=== PATIENT | male | born 1985 | race Caucasian/White ===

== ENCOUNTER 2019-01-14 00:51 | Inpatient (IN) | payer OTHER, MEDICAID ==
[~2019-01-14] VITALS: Ht 167.6 cm; Wt 78.0 kg
[2019-01-14] VITALS (11 sets, daily range): BP systolic 86–123; BP diastolic 35–80
[2019-01-14] MEDS ORDERED: ONDANSETRON HCL 4MG/2ML INJ IV STA (01:27)
[2019-01-14] MEDS ORDERED: SODIUM CHLORIDE 0.9% 1,000 ML IV ONE ×2 (01:27→03:32)
[2019-01-14] MEDS ORDERED: LORAZEPAM 2MG/ML CPJ IV ONE (01:30)
[2019-01-14] MEDS ORDERED: LEVETIRACETAM 500MG PREMIX 100 ML IV ONE (01:30)
[2019-01-14 01:54] LABS: BASOPHILS % 0.3 % (0.0-2.0); EOSINOPHILS % 1.6 % (0.0-5.0); HEMATOCRIT. 44.1 % (42.0-52.0); HEMOGLOBIN. 14.9 g/dL (14.0-18.0); LYMPHOCYTES % 10.2 % (20.0-50.0); MEAN CORPUSCULAR HEMOGLOBIN 28.8 pg (28.0-32.0); MEAN CORPUSCULAR VOLUME 85.5 fL (80.0-94.0); MEAN PLATELET VOLUME 6.9 fl (7.4-10.4); MONOCYTES % 5.3 % (2.0-8.0); NEUTROPHILS % 82.6 % (40.0-76.0); PLATELET 169 x1000/uL (130-400); RED BLOOD CELL COUNT 5.17 mill/uL (4.7-6.1); RED CELL DISTRIBUTION WIDTH 14.5 % (11.6-14.6)
[2019-01-14 02:02] LABS: CHLORIDE 101 mEq/L (98-107)
[2019-01-14 11:44] LABS: BG DEOXYHEMOGLOBIN 3.3 % (0.0-5.0); BG FRACTION INSPIRED OXYGEN 21; BG HCO3 ACT 24.2 mmol/L (22.0-26.0); BG METHEMOGLOBIN 0.4 % (0.0-1.5); BG OXYGEN SATURATION 96.7 % (92.0-98.5); BG OXYHEMOGLOBIN 95.3 % (94.0-97.0); BG PH 7.378 (7.350-7.450); BG PO2 86.5 mmHg (75.0-100.0); BG SAMPLE SITE RIGHT RADIAL; BG TOTAL HEMOGLOBIN 15.8 g/dL (12.0-18.0); BG VENT MODE ROOM AIR
[2019-01-14 12:27] LABS: BASOPHILS % 0.2 % (0.0-2.0); EOSINOPHILS % 1.4 % (0.0-5.0); HEMATOCRIT. 43.5 % (42.0-52.0); HEMOGLOBIN. 14.6 g/dL (14.0-18.0); LYMPHOCYTES % 7.1 % (20.0-50.0); MEAN CORPUSCULAR VOLUME 86.5 fL (80.0-94.0); MEAN PLATELET VOLUME 7.4 fl (7.4-10.4); MONOCYTES % 5.8 % (2.0-8.0); NEUTROPHILS % 85.5 % (40.0-76.0); PLATELET 175 x1000/uL (130-400); RED BLOOD CELL COUNT 5.03 mill/uL (4.7-6.1); RED CELL DISTRIBUTION WIDTH 14.6 % (11.6-14.6)
[2019-01-14 12:37] LABS: CHLORIDE 106 mEq/L (98-107)
[2019-01-14 12:39] LABS: PROTHROMBIN TIME 10.2 sec (9.6-11.0)
[2019-01-14 12:45] LABS: CREATINE KINASE 74 IU/L (39-308)
[2019-01-14 12:50] LABS: CREATINE KINASE MB FRACTION < 1.0 ng/mL (0.5-3.6)
[2019-01-14] MEDS ORDERED: PNEUMOCOCCAL 23-VAL P-SAC VAC 0.5 ML IM ONE (14:00)
[2019-01-14] MEDS ORDERED: INFLUENZA VIRUS VACCINE(AFLURIA) 0.5ML SYR IM ONE (14:00)
[2019-01-14] MEDS: LEVETIRACETAM 500 MG in SODIUM CHLORIDE 0.9% 100 ML IV SCH ×2 (14:27→22:57)
[2019-01-14] MEDS ORDERED: LORAZEPAM 2MG/ML CPJ IV PRN (15:00)
[2019-01-14] MEDS ORDERED: CLONIDINE 0.1MG TABLET PO PRN (15:00)
[2019-01-14] MEDS ORDERED: DIPHENHYDRAMINE 50MG/ML VIAL IV PRN (15:00)
[2019-01-14] MEDS: SODIUM CHLORIDE 0.45% 1,000 ML IV SCH (16:30)
[2019-01-14] MEDS: LEVOFLOXACIN 500MG PREMIX 100 ML IV SCH (17:13)
[2019-01-14 17:45] LABS: HEPATITIS B SURFACE ANTIGEN NEGATIVE
[2019-01-14 18:15] LABS: HEPATITIS A AB IGM NEGATIVE (NEGATIVE)
[2019-01-14] MEDS ORDERED: ENOXAPARIN 40MG/0.4ML SYR SUBCUT SCH (21:00)
[2019-01-14] MEDS: METRONIDAZOLE 500MG TABLET PO SCH (21:29)
[2019-01-14] MEDS: FAMOTIDINE 20MG TABLET PO SCH (21:29)
[2019-01-15] VITALS (13 sets, daily range): BP systolic 74–115; BP diastolic 44–72
[2019-01-15] MEDS: METRONIDAZOLE 500MG TABLET PO SCH ×3 (06:00→22:35)
[2019-01-15 06:44] LABS: CHLORIDE 101 mEq/L (98-107)
[2019-01-15 07:03] LABS: BASOPHILS % 0.3 % (0.0-2.0); EOSINOPHILS % 2.5 % (0.0-5.0); HEMOGLOBIN. 15.3 g/dL (14.0-18.0); LYMPHOCYTES % 12.3 % (20.0-50.0); MEAN CORPUSCULAR HEMOGLOBIN 28.6 pg (28.0-32.0); MEAN CORPUSCULAR VOLUME 85.8 fL (80.0-94.0); MEAN PLATELET VOLUME 7.5 fl (7.4-10.4); MONOCYTES % 9.6 % (2.0-8.0); NEUTROPHILS % 75.3 % (40.0-76.0); PLATELET 200 x1000/uL (130-400); RED BLOOD CELL COUNT 5.36 mill/uL (4.7-6.1); RED CELL DISTRIBUTION WIDTH 14.7 % (11.6-14.6)
[2019-01-15 07:40] LABS: CLARITY URINE CLEAR (CLEAR); COLOR URINE DARK YELLOW (YELLOW); KETONES URINE NEGATIVE (NEGATIVE); LEUKOCYTE ESTERASE URINE NEGATIVE (NEGATIVE); NITRITE URINE NEGATIVE (NEGATIVE); OCCULT BLOOD URINE NEGATIVE (NEGATIVE); PH URINE 5.5 (4.5-8.0); PROTEIN URINE 2+ (NEGATIVE); SPECIFIC GRAVITY URINE 1.031 (1.005-1.030); UROBILINOGEN URINE 0.2 E.U./dL (0.2-1.0)
[2019-01-15] MEDS: ONDANSETRON HCL 4MG/2ML INJ IV PRN ×2 (07:46→18:21)
[2019-01-15] MEDS: LEVETIRACETAM 500 MG in SODIUM CHLORIDE 0.9% 100 ML IV SCH ×2 (08:59→21:12)
[2019-01-15] MEDS: SODIUM CHLORIDE 0.45% 1,000 ML IV SCH ×3 (09:03→17:03)
[2019-01-15] MEDS: LEVOFLOXACIN 500MG PREMIX 100 ML IV SCH (14:52)
[2019-01-15] MEDS ORDERED: MIDODRINE HCL 5MG TABLET PO PRN (15:15)
[2019-01-15] MEDS ORDERED: MORPHINE SULFATE 2 MG/ML CPJ (NOT FOR IM USE) IV PRN (15:15)
[2019-01-15] MEDS ORDERED: IPRATROPIUM/ALBUTEROL 0.5-3(2.5)MG/3ML NEB HHN PRN (15:15)
[2019-01-15] MEDS: FAMOTIDINE 20MG TABLET PO SCH (21:12)
[2019-01-16] VITALS (9 sets, daily range): BP systolic 85–121; BP diastolic 40–81
[2019-01-16] MEDS: SODIUM CHLORIDE 0.45% 1,000 ML IV SCH ×2 (05:36→07:39)
[2019-01-16] MEDS: METRONIDAZOLE 500MG TABLET PO SCH ×3 (05:36→20:03)
[2019-01-16 06:19] LABS: HEMATOCRIT 49.2 % (42.0-52.0); HEMOGLOBIN 16.6 g/dL (14.0-18.0); MEAN CORPUSCULAR HEMOGLOBIN 28.5 pg (28.0-32.0); MEAN CORPUSCULAR VOLUME 84.6 fL (80.0-94.0); PLATELET 216 x1000/uL (130-400); RED BLOOD CELL COUNT 5.82 mill/uL (4.7-6.1); RED CELL DISTRIBUTION WIDTH 14.5 % (11.6-14.6)
[2019-01-16] MEDS: LEVETIRACETAM 500MG TABLET PO SCH ×2 (10:14→20:03)
[2019-01-16] MEDS ORDERED: SODIUM CHLORIDE 0.9% 500 ML IV NR (11:15)
[2019-01-16] MEDS ORDERED: LEVO500T2 PO (13:43)
[2019-01-16] MEDS ORDERED: FAMO-135 MT (13:43)
[2019-01-16] MEDS ORDERED: KEPP500 MT (13:43)
[2019-01-16] MEDS ORDERED: METR500T MT (13:43)
[2019-01-16] MEDS ORDERED: SODIUM CHLORIDE 0.9% 500 ML IV ONE ×2 (17:00→23:45)
[2019-01-16] MEDS ORDERED: LEVOFLOXACIN 250MG TABLET PO SCH (17:00)
[2019-01-16] MEDS ORDERED: LEVOFLOXACIN 500MG TABLET PO SCH (17:00)
[2019-01-16] MEDS ORDERED: POTASSIUM CHLORIDE 20MEQ TABLET SR PO NR (17:00)
[2019-01-16] MEDS: MIDODRINE HCL 5MG TABLET PO SCH (18:09)
[2019-01-16] MEDS: SODIUM CHLORIDE 0.9% 1,000 ML IV SCH (20:03)
[2019-01-16] MEDS: FAMOTIDINE 20MG TABLET PO SCH (20:03)
[2019-01-16] MEDS ORDERED: SODIUM CHLORIDE 0.9% 1000ML BAG (SEPSIS BOLUS) IV SCH (23:45)
[2019-01-16] MEDS ORDERED: NOREPINEPHRINE 4MG/250ML PMX 250 ML IV ONE (23:45)
[2019-01-17] VITALS (83 sets, daily range): BP systolic 78–138; BP diastolic 30–71
[2019-01-17] MEDS ORDERED: NOREPINEPHRINE 8 MG in DEXT 5% WATER 492 ML IV PRN (01:00)
[2019-01-17 05:28] LABS: BASOPHILS % 0.4 % (0.0-2.0); EOSINOPHILS % 3.4 % (0.0-5.0); HEMATOCRIT. 41.8 % (42.0-52.0); HEMOGLOBIN. 14.2 g/dL (14.0-18.0); LYMPHOCYTES % 26.3 % (20.0-50.0); MEAN CORPUSCULAR HEMOGLOBIN 28.6 pg (28.0-32.0); MEAN CORPUSCULAR VOLUME 84.4 fL (80.0-94.0); MEAN PLATELET VOLUME 7.2 fl (7.4-10.4); MONOCYTES % 12.7 % (2.0-8.0); NEUTROPHILS % 57.2 % (40.0-76.0); PLATELET 196 x1000/uL (130-400); RED BLOOD CELL COUNT 4.96 mill/uL (4.7-6.1); RED CELL DISTRIBUTION WIDTH 14.4 % (11.6-14.6)
[2019-01-17 05:34] LABS: CHLORIDE 108 mEq/L (98-107)
[2019-01-17] MEDS: SODIUM CHLORIDE 0.9% 1,000 ML IV SCH ×3 (07:00→17:00)
[2019-01-17] MEDS: MIDODRINE HCL 5MG TABLET PO SCH ×3 (09:45→17:33)
[2019-01-17] MEDS: METRONIDAZOLE 500MG TABLET PO SCH ×2 (09:45→20:19)
[2019-01-17] MEDS: LEVETIRACETAM 500MG TABLET PO SCH ×2 (09:46→20:19)
[2019-01-17] MEDS: LEVOFLOXACIN 500MG TABLET PO SCH (17:33)
[2019-01-17] MEDS: FAMOTIDINE 20MG TABLET PO SCH (20:19)
[2019-01-18] VITALS (11 sets, daily range): BP systolic 93–106; BP diastolic 52–76
[2019-01-18] MEDS: SODIUM CHLORIDE 0.9% 1,000 ML IV SCH ×2 (02:37→13:43)
[2019-01-18] MEDS: MIDODRINE HCL 5MG TABLET PO SCH ×3 (09:48→18:26)
[2019-01-18] MEDS: LEVETIRACETAM 500MG TABLET PO SCH (09:48)
[2019-01-18] MEDS: METRONIDAZOLE 500MG TABLET PO SCH (09:48)
[2019-01-18] MEDS: LEVOFLOXACIN 500MG TABLET PO SCH (13:42)
[2019-01-18 15:31] LABS: CHLORIDE 106 mEq/L (98-107)
[2019-01-18 15:34] LABS: HEMATOCRIT 37.3 % (42.0-52.0); HEMOGLOBIN 12.5 g/dL (14.0-18.0); MEAN CORPUSCULAR HEMOGLOBIN 28.4 pg (28.0-32.0); MEAN CORPUSCULAR VOLUME 84.4 fL (80.0-94.0); PLATELET 154 x1000/uL (130-400); RED BLOOD CELL COUNT 4.41 mill/uL (4.7-6.1); RED CELL DISTRIBUTION WIDTH 14.5 % (11.6-14.6)
== END 2019-01-18 19:17 | disposition home or self-care (01) | DRG 100 ==
LOC: ER 00:51 → EDBEDREQTM 04:37 → EDBEDREQ 04:37 → EDBEDREQSVC 07:00 → 3WST 07:02 → ENRESERV 07:21 → MICUSO 01-17 00:20 → 3WST 01-17 23:36
PROVIDERS: ADMIT Internal Medicine; ATTEND Internal Medicine
DX: G40.409 Other generalized epilepsy and epileptic syndromes, not intractable, without status epilepticus (principal); G93.41 Metabolic encephalopathy; N17.9 Acute kidney failure, unspecified; E87.1 Hypo-osmolality and hyponatremia; R74.0 Nonspecific elevation of levels of transaminase and lactic acid dehydrogenase [LDH]; E86.0 Dehydration; R73.9 Hyperglycemia, unspecified; E87.6 Hypokalemia; I95.9 Hypotension, unspecified; Z93.2 Ileostomy status; Z85.038 Personal history of other malignant neoplasm of large intestine; Z85.841 Personal history of malignant neoplasm of brain; Z88.0 Allergy status to penicillin; Z79.899 Other long term (current) drug therapy
CPT/HCPCS: 36415; 36600; 71045; 74176; 76700; 80048; 81003; 82140; 82270; 82375; 82378; 82550; 82553; 82805; 83735; 84132; 84484; 85027; 85379; 86705; 86709; 86803; 87015; 87045; 87340; 87427; 87449; 87493; 89055; 90686; 90732; 92610; 93005; 95816; 96361; 96365; 96375; 97162; 99285; J1953; J1956; J2060; J2405; J7030; J7040; J7050

== ENCOUNTER 2020-11-22 04:49 | Inpatient (IN) | payer OTHER, MEDICAID ==
[~2020-11-22] VITALS: Ht 167.6 cm; Wt 65.3 kg
[~2020-11-22 04:49] MED LIST: FAMO-135 MT; KEPP500 MT; LEVO500T2 PO; METR500T MT
[2020-11-22] MEDS ORDERED: SODIUM CHLORIDE 0.9% 1,000 ML IV ONE (05:30)
[2020-11-22 05:39] LABS: HEMATOCRIT. 34.7 % (42.0-52.0); HEMOGLOBIN. 12.1 g/dL (14.0-18.0); MEAN CORPUSCULAR VOLUME 88.8 fL (80.0-94.0); MEAN PLATELET VOLUME 6.9 fl (7.4-10.4); PLATELET 290 x1000/uL (130-400); RED CELL DISTRIBUTION WIDTH 14.2 % (11.6-14.6)
[2020-11-22] MEDS ORDERED: MORPHINE SULFATE 4 MG/ML CPJ (NOT FOR IM USE) IV ONE (05:45)
[2020-11-22 05:51] LABS: CHLORIDE 97 mEq/L (98-107)
[2020-11-22] MEDS ORDERED: MORPHINE SULFATE 2 MG/ML CPJ (NOT FOR IM USE) IV SCH (06:00)
[2020-11-22 07:10] LABS: PLATELET ESTIMATE NORMAL
[2020-11-22] MEDS ORDERED: IOHEXOL-350 100 ML BOTTLE ONE (07:11)
[2020-11-22] MEDS ORDERED: LEVOFLOXACIN 750MG PREMIX 150 ML IV ONE (07:30)
[2020-11-22] MEDS ORDERED: SODIUM CHLORIDE 0.9% 1000ML BAG (SEPSIS BOLUS) IV ONE (07:30)
[2020-11-22] MEDS ORDERED: LABETALOL HCL 20MG/4ML CARPUJECT IV ONE (08:45)
[2020-11-22] MEDS ORDERED: LABETALOL 5MG/ML SYR 20 MG/4 ML SYRINGE IV SCH (09:00)
[2020-11-22] MEDS ORDERED: IPRATROPIUM/ALBUTEROL 0.5-3(2.5)MG/3ML NEB HHN PRN (12:15)
[2020-11-22] MEDS ORDERED: ACETAMINOPHEN 325MG TABLET PO PRN (12:15)
[2020-11-22] MEDS ORDERED: BENZONATATE 100MG CAPSULE PO PRN (12:15)
[2020-11-22] MEDS ORDERED: CEFTRIAXONE 1 G PREMIX 50 ML IV SCH (12:15)
[2020-11-22] MEDS ORDERED: ONDANSETRON HCL 4MG/2ML INJ IV PRN (12:15)
[2020-11-22] MEDS: AZITHROMYCIN 250 MG TABLET PO SCH (14:11)
[2020-11-22] MEDS ORDERED: NALOXONE HCL 0.4MG/ML VIAL IV PRN (14:15)
[2020-11-22 16:00] VITALS: BP 96/60
[2020-11-22 16:39] VITALS: BP 100/61
[2020-11-22] MEDS: HYDROCODONE/ACETAMINOPHEN 5/325MG TABLET PO PRN ×2 (16:39→21:51)
[2020-11-22] MEDS ORDERED: POTASSIUM CHLORIDE 20MEQ TABLET SR PO NR (16:56)
[2020-11-22] MEDS: CEFTRIAXONE 1,000 MG in DEXTROSE 5% WATER 50 ML IV SCH (18:00)
[2020-11-22] MEDS ORDERED: ZINC50TA69 MT (19:35)
[2020-11-22] MEDS ORDERED: ASCO-339 MT (19:35)
[2020-11-22] MEDS ORDERED: DIPH1TAB24 MT (19:37)
[2020-11-22] MEDS ORDERED: CHOL500010 (19:37)
[2020-11-22 20:41] VITALS: BP 98/65
[2020-11-23] VITALS: BP 93/69
[2020-11-23] MEDS: HYDROCODONE/ACETAMINOPHEN 5/325MG TABLET PO PRN ×3 (02:12→20:10)
[2020-11-23 04:00] VITALS: BP 96/63
[2020-11-23] MEDS: OMEPRAZOLE 20MG CAPSULE EXTENDED RELEASE PO SCH (06:09)
[2020-11-23 08:00] VITALS: BP 91/58
[2020-11-23] MEDS: AZITHROMYCIN 250 MG TABLET PO SCH (09:18)
[2020-11-23] MEDS ORDERED: BISACODYL 10MG SUPP PR PRN (11:15)
[2020-11-23 11:31] LABS: BG BASE EXCESS 2.1 mmol/L (-2.0-2.0); BG CARBOXYHEMOGLOBIN 0.1 % (0.5-1.5); BG DEOXYHEMOGLOBIN 4.6 % (0.0-5.0); BG HCO3 ACT 26.1 mmol/L (22.0-26.0); BG METHEMOGLOBIN 0.3 % (0.0-1.5); BG OXYGEN SATURATION 95.4 % (92.0-98.5); BG PCO2 38.5 mmHg (35.0-45.0); BG PH 7.449 (7.350-7.450); BG PO2 77.7 mmHg (75.0-100.0); BG SAMPLE SITE RIGHT BRACHIAL; BG TOTAL HEMOGLOBIN 11.5 g/dL (12.0-18.0); BG VENT MODE NASAL CANNULA
[2020-11-23 12:00] VITALS: BP 96/63
[2020-11-23] MEDS: CEFTRIAXONE 1,000 MG in DEXTROSE 5% WATER 50 ML IV SCH (13:59)
[2020-11-23] MEDS ORDERED: LORAZEPAM 2MG/ML CPJ IV PRN (15:00)
[2020-11-23] MEDS ORDERED: MORPHINE SULFATE 2 MG/ML CPJ (NOT FOR IM USE) IV PRN (15:00)
[2020-11-23] MEDS ORDERED: HYDRALAZINE 20MG/ML VIAL IV PRN (15:00)
[2020-11-23 16:00] VITALS: BP 111/65
[2020-11-23 17:31] LABS: BASOPHILS % 0.4 % (0.0-2.0); EOSINOPHILS % 0.4 % (0.0-5.0); HEMATOCRIT. 29.7 % (42.0-52.0); HEMOGLOBIN. 10.1 g/dL (14.0-18.0); LYMPHOCYTES % 11.5 % (20.0-50.0); MEAN PLATELET VOLUME 6.7 fl (7.4-10.4); MONOCYTES % 6.9 % (2.0-8.0); NEUTROPHILS % 80.8 % (40.0-76.0); PLATELET 242 x1000/uL (130-400); RED BLOOD CELL COUNT 3.27 mill/uL (4.7-6.1); RED CELL DISTRIBUTION WIDTH 14.5 % (11.6-14.6)
[2020-11-23] MEDS: LEVETIRACETAM 500MG TABLET PO SCH (17:34)
[2020-11-23 20:00] LABS: CHLORIDE 102 mEq/L (98-107)
[2020-11-23 20:05] VITALS: BP 94/59
[2020-11-23 20:14] LABS: PROTHROMBIN TIME 10.6 sec (9.6-11.0)
[2020-11-23] MEDS: IPRATROPIUM/ALBUTEROL 0.5-3(2.5)MG/3ML NEB HHN SCH (21:00)
[2020-11-24] VITALS: BP 92/53
[2020-11-24] MEDS: IPRATROPIUM/ALBUTEROL 0.5-3(2.5)MG/3ML NEB HHN SCH ×3 (01:20→20:59)
[2020-11-24 04:00] VITALS: BP 93/66
[2020-11-24] MEDS: OMEPRAZOLE 20MG CAPSULE EXTENDED RELEASE PO SCH (05:47)
[2020-11-24 06:31] LABS: CLARITY URINE CLEAR (CLEAR); COLOR URINE YELLOW (YELLOW); KETONES URINE TRACE (NEGATIVE); LEUKOCYTE ESTERASE URINE 1+ (NEGATIVE); NITRITE URINE NEGATIVE (NEGATIVE); OCCULT BLOOD URINE 2+ (NEGATIVE); PROTEIN URINE 2+ (NEGATIVE); SPECIFIC GRAVITY URINE 1.031 (1.005-1.030)
[2020-11-24 07:42] LABS: CHLORIDE 101 mEq/L (98-107)
[2020-11-24 07:46] LABS: BASOPHILS % 0.4 % (0.0-2.0); EOSINOPHILS % 1.6 % (0.0-5.0); HEMOGLOBIN. 9.2 g/dL (14.0-18.0); LYMPHOCYTES % 13.8 % (20.0-50.0); MEAN CORPUSCULAR HEMOGLOBIN 30.8 pg (28.0-32.0); MEAN CORPUSCULAR VOLUME 90.1 fL (80.0-94.0); MEAN PLATELET VOLUME 7.1 fl (7.4-10.4); MONOCYTES % 7.2 % (2.0-8.0); PLATELET 245 x1000/uL (130-400); RED CELL DISTRIBUTION WIDTH 14.3 % (11.6-14.6)
[2020-11-24] MEDS: LEVETIRACETAM 500MG TABLET PO SCH ×2 (09:52→17:03)
[2020-11-24] MEDS: AZITHROMYCIN 250 MG TABLET PO SCH (09:52)
[2020-11-24] MEDS: HYDROCODONE/ACETAMINOPHEN 5/325MG TABLET PO PRN ×2 (10:06→22:30)
[2020-11-24] MEDS ORDERED: ALBU90AE INH (12:01)
[2020-11-24] MEDS ORDERED: LEVO500T89 MT (12:01)
[2020-11-24 12:18] LABS: BG BASE EXCESS 4.2 mmol/L (-2.0-2.0); BG CARBOXYHEMOGLOBIN 0.3 % (0.5-1.5); BG DEOXYHEMOGLOBIN 5.6 % (0.0-5.0); BG FRACTION INSPIRED OXYGEN 21; BG HCO3 ACT 28.7 mmol/L (22.0-26.0); BG METHEMOGLOBIN 0.2 % (0.0-1.5); BG OXYGEN SATURATION 94.4 % (92.0-98.5); BG OXYHEMOGLOBIN 93.9 % (94.0-97.0); BG PCO2 43.2 mmHg (35.0-45.0); BG PH 7.441 (7.350-7.450); BG PO2 71.9 mmHg (75.0-100.0); BG SAMPLE SITE RIGHT BRACHIAL; BG TOTAL HEMOGLOBIN 10.2 g/dL (12.0-18.0); BG VENT MODE ROOM AIR
[2020-11-24 12:29] VITALS: BP 81/41
[2020-11-24 14:08] VITALS: BP_SYST 103; BP_SYST 99; BP_DIAS 57; BP_DIAS 70
[2020-11-24] MEDS: CEFTRIAXONE 1,000 MG in DEXTROSE 5% WATER 50 ML IV SCH (14:36)
[2020-11-24 16:00] VITALS: BP 89/59
[2020-11-25] VITALS (8 sets, daily range): BP systolic 84–96; BP diastolic 48–87
[2020-11-25] MEDS: IPRATROPIUM/ALBUTEROL 0.5-3(2.5)MG/3ML NEB HHN SCH ×4 (00:55→21:50)
[2020-11-25] MEDS ORDERED: SODIUM CHLORIDE 0.9% 1,000 ML IV ONE (04:00)
[2020-11-25 06:25] LABS: BASOPHILS % 0.7 % (0.0-2.0); EOSINOPHILS % 1.2 % (0.0-5.0); HEMOGLOBIN. 9.7 g/dL (14.0-18.0); LYMPHOCYTES % 14.5 % (20.0-50.0); MEAN CORPUSCULAR HEMOGLOBIN 30.5 pg (28.0-32.0); MEAN CORPUSCULAR VOLUME 91.4 fL (80.0-94.0); MEAN PLATELET VOLUME 7.3 fl (7.4-10.4); MONOCYTES % 7.8 % (2.0-8.0); NEUTROPHILS % 75.8 % (40.0-76.0); PLATELET 267 x1000/uL (130-400); RED BLOOD CELL COUNT 3.17 mill/uL (4.7-6.1); RED CELL DISTRIBUTION WIDTH 14.3 % (11.6-14.6)
[2020-11-25 06:35] LABS: CHLORIDE 102 mEq/L (98-107)
[2020-11-25] MEDS: OMEPRAZOLE 20MG CAPSULE EXTENDED RELEASE PO SCH (06:44)
[2020-11-25] MEDS: LEVETIRACETAM 500MG TABLET PO SCH ×2 (09:35→17:34)
[2020-11-25] MEDS: AZITHROMYCIN 250 MG TABLET PO SCH (09:35)
[2020-11-25] MEDS ORDERED: MIDO5TAB4 MT (11:20)
[2020-11-25] MEDS ORDERED: MIDODRINE HCL 5MG TABLET PO NR (11:30)
[2020-11-25] MEDS ORDERED: SODIUM CHLORIDE 0.9% 250 ML IV ONE ×2 (12:15→14:15)
[2020-11-25] MEDS: CEFTRIAXONE 1,000 MG in DEXTROSE 5% WATER 50 ML IV SCH (14:46)
[2020-11-25] MEDS: MIDODRINE HCL 5MG TABLET PO SCH (17:26)
[2020-11-26 00:30] VITALS: BP 147/57
[2020-11-26] MEDS: IPRATROPIUM/ALBUTEROL 0.5-3(2.5)MG/3ML NEB HHN SCH ×2 (03:39→09:30)
[2020-11-26 04:00] VITALS: BP 99/69
[2020-11-26] MEDS: OMEPRAZOLE 20MG CAPSULE EXTENDED RELEASE PO SCH (06:37)
[2020-11-26 08:04] VITALS: BP 91/58
[2020-11-26] MEDS: MIDODRINE HCL 5MG TABLET PO SCH (09:13)
[2020-11-26] MEDS: LEVETIRACETAM 500MG TABLET PO SCH (09:13)
[2020-11-26] MEDS: AZITHROMYCIN 250 MG TABLET PO SCH (09:13)
[2020-11-26 09:21] VITALS: BP 103/70
[2020-11-26 10:38] LABS: BASOPHILS % 1.1 % (0.0-2.0); EOSINOPHILS % 0.8 % (0.0-5.0); HEMATOCRIT. 26.1 % (42.0-52.0); HEMOGLOBIN. 8.8 g/dL (14.0-18.0); LYMPHOCYTES % 11.8 % (20.0-50.0); MEAN CORPUSCULAR HEMOGLOBIN 30.9 pg (28.0-32.0); MEAN CORPUSCULAR VOLUME 91.7 fL (80.0-94.0); MEAN PLATELET VOLUME 6.8 fl (7.4-10.4); NEUTROPHILS % 78.3 % (40.0-76.0); PLATELET 300 x1000/uL (130-400); RED BLOOD CELL COUNT 2.85 mill/uL (4.7-6.1); RED CELL DISTRIBUTION WIDTH 14.5 % (11.6-14.6)
[2020-11-26 10:52] LABS: CHLORIDE 102 mEq/L (98-107)
== END 2020-11-26 10:54 | disposition home or self-care (01) | DRG 871 ==
LOC: ER 04:49 → MICUSO 10:25 → EDBEDREQ 11:22 → EDBEDREQTM 11:22 → 6WST 14:19
PROVIDERS: ADMIT Internal Medicine; ATTEND Internal Medicine
DX: A41.9 Sepsis, unspecified organism (principal); J18.9 Pneumonia, unspecified organism; E43 Unspecified severe protein-calorie malnutrition; C71.9 Malignant neoplasm of brain, unspecified; E87.2 Acidosis; D64.9 Anemia, unspecified; E87.6 Hypokalemia; E87.8 Other disorders of electrolyte and fluid balance, not elsewhere classified; K80.20 Calculus of gallbladder without cholecystitis without obstruction; G40.909 Epilepsy, unspecified, not intractable, without status epilepticus; K20.90 Esophagitis, unspecified without bleeding; Z20.822 Contact with and (suspected) exposure to COVID-19; Z93.3 Colostomy status; Z88.0 Allergy status to penicillin; Z79.899 Other long term (current) drug therapy; Z68.23 Body mass index [BMI] 23.0-23.9, adult; Z85.038 Personal history of other malignant neoplasm of large intestine; Z85.841 Personal history of malignant neoplasm of brain; Z93.2 Ileostomy status
CPT/HCPCS: 36415; 36600; 71045; 71275; 74176; 80048; 80053; 81003; 82375; 82805; 83605; 83880; 84484; 85025; 85379; 87426; 93005; 93306; 94640; 99291; J0696; J1956; J2060; J2270; J3490; J7030; J7060; Q9967

== ENCOUNTER 2021-02-11 15:16 | Inpatient (IN) | payer OTHER, MEDICAID ==
[~2021-02-11] VITALS: Ht 167.6 cm; Wt 56.7 kg
[~2021-02-11 15:16] MED LIST changes: +ALBU90AE INH; +ASCO-339 MT; +CHOL500010; +DIPH1TAB24 MT; -LEVO500T2 PO; +LEVO500T89 MT; -METR500T MT; +MIDO5TAB4 MT; +ZINC50TA69 MT
[2021-02-11] MEDS ORDERED: KETOROLAC 30MG/ML VIAL IV STA (15:35)
[2021-02-11] MEDS ORDERED: MORPHINE SULFATE 4 MG/ML CPJ (NOT FOR IM USE) IV STA (15:39)
[2021-02-11] MEDS ORDERED: ONDANSETRON HCL 4MG/2ML INJ IV STA (15:39)
[2021-02-11] MEDS ORDERED: SODIUM CHLORIDE 0.9% 1,000 ML IV ONE ×2 (15:45)
[2021-02-11 16:32] LABS: BASOPHILS % 0.2 % (0.0-2.0); EOSINOPHILS % 0.2 % (0.0-5.0); HEMATOCRIT. 28.6 % (42.0-52.0); HEMOGLOBIN. 9.5 g/dL (14.0-18.0); LYMPHOCYTES % 11.6 % (20.0-50.0); MEAN CORPUSCULAR HEMOGLOBIN 28.9 pg (28.0-32.0); MEAN CORPUSCULAR VOLUME 86.7 fL (80.0-94.0); MONOCYTES % 7.1 % (2.0-8.0); NEUTROPHILS % 80.9 % (40.0-76.0); PLATELET 312 x1000/uL (130-400); RED BLOOD CELL COUNT 3.29 mill/uL (4.7-6.1); RED CELL DISTRIBUTION WIDTH 16.3 % (11.6-14.6)
[2021-02-11 16:39] LABS: CHLORIDE 105 mEq/L (98-107)
[2021-02-11 16:43] LABS: CREATINE KINASE 28 IU/L (39-308); ETHANOL BLOOD < 10 mg/dL
[2021-02-11] MEDS ORDERED: MORPHINE SULFATE 4 MG/ML CPJ (NOT FOR IM USE) IV ONE (17:15)
[2021-02-11 17:58] LABS: CLARITY URINE CLOUDY (CLEAR); COLOR URINE YELLOW (YELLOW); KETONES URINE NEGATIVE (NEGATIVE); LEUKOCYTE ESTERASE URINE 2+ (NEGATIVE); NITRITE URINE NEGATIVE (NEGATIVE); OCCULT BLOOD URINE 2+ (NEGATIVE); PROTEIN URINE 1+ (NEGATIVE); SPECIFIC GRAVITY URINE 1.014 (1.005-1.030); UROBILINOGEN URINE 0.2 E.U./dL (0.2-1.0)
[2021-02-11 18:52] LABS: *AMPHETAMINES SCREEN URINE NEGATIVE (NEGATIVE); *BARBITURATES SCREEN URINE NEGATIVE (NEGATIVE); *BENZODIAZEPINES SCREEN URINE NEGATIVE (NEGATIVE)
[2021-02-11 18:53] LABS: *COCAINE SCREEN URINE NEGATIVE (NEGATIVE); CANNABINOID URINE SCREEN NEGATIVE (NEGATIVE); METHADONE URINE SCREEN NEGATIVE (NEGATIVE); OPIATES URINE SCREEN PRESUMTIVE POSITIVE (NEGATIVE); PHENCYCLIDINE URINE SCREEN NEGATIVE (NEGATIVE)
[2021-02-11] MEDS ORDERED: GENTAMICIN 100MG PREMIX 100 ML IV NR (19:15)
[2021-02-11] MEDS ORDERED: GENTAMICIN 100MG PREMIX 50 ML IV NR (19:39)
[2021-02-11] MEDS ORDERED: MORPHINE SULFATE 4 MG/ML CPJ (NOT FOR IM USE) IV NR (21:15)
[2021-02-11 21:55] VITALS: BP 95/64
[2021-02-11 22:00] VITALS: BP 95/64
[2021-02-11] MEDS ORDERED: INFLUENZA VACCINE 05/PF 0.5 ML SYRINGE IM ONE (23:45)
[2021-02-11] MEDS ORDERED: METR-167 PO (23:56)
[2021-02-11] MEDS ORDERED: ALBU18HF2 IH (23:56)
[2021-02-11] MEDS ORDERED: PAZO200T MT (23:56)
[2021-02-11] MEDS ORDERED: ASCO-339 PO (23:56)
[2021-02-11] MEDS ORDERED: INUL2TAB5 PO (23:56)
[2021-02-11] MEDS ORDERED: OMEP20CA14 PO (23:56)
[2021-02-11] MEDS ORDERED: HYDR-4001 PO ×2 (23:56)
[2021-02-11] MEDS ORDERED: DIPH1TAB24 MT (23:56)
[2021-02-11] MEDS ORDERED: TOPUD PO (23:56)
[2021-02-11] MEDS ORDERED: PSYL0.5243 PO (23:56)
[2021-02-11] MEDS ORDERED: FLUC200T51 PO (23:56)
[2021-02-11] MEDS ORDERED: LOPE2CAP MT (23:56)
[2021-02-11] MEDS ORDERED: SENN1TAB35 PO (23:56)
[2021-02-11] MEDS ORDERED: ZINC220T4 PO (23:56)
[2021-02-12] VITALS (7 sets, daily range): BP systolic 90–111; BP diastolic 50–67
[2021-02-12] MEDS ORDERED: ONDANSETRON HCL 4MG/2ML INJ IV PRN (00:15)
[2021-02-12] MEDS ORDERED: MORPHINE SULFATE 2 MG/ML CPJ (NOT FOR IM USE) IV PRN (00:15)
[2021-02-12] MEDS ORDERED: SODIUM CHLORIDE 0.9% 1000ML BAG (SEPSIS BOLUS) IV ONE (00:15)
[2021-02-12] MEDS: CEFTRIAXONE 1,000 MG in DEXTROSE 5% WATER 50 ML IV SCH (02:21)
[2021-02-12 05:27] LABS: BASOPHILS % 0.3 % (0.0-2.0); EOSINOPHILS % 0.7 % (0.0-5.0); HEMATOCRIT. 24.8 % (42.0-52.0); LYMPHOCYTES % 19.1 % (20.0-50.0); MEAN CORPUSCULAR VOLUME 86.5 fL (80.0-94.0); MEAN PLATELET VOLUME 6.5 fl (7.4-10.4); MONOCYTES % 10.6 % (2.0-8.0); NEUTROPHILS % 69.3 % (40.0-76.0); PLATELET 271 x1000/uL (130-400); RED BLOOD CELL COUNT 2.86 mill/uL (4.7-6.1); RED CELL DISTRIBUTION WIDTH 16.1 % (11.6-14.6)
[2021-02-12 05:47] LABS: CHLORIDE 106 mEq/L (98-107)
[2021-02-12] MEDS ORDERED: CEFTRIAXONE 1 G PREMIX 50 ML IV SCH (06:00)
[2021-02-12] MEDS ORDERED: *PATIENT'S OWN MEDICATION STORAGE XX SCH (06:45)
[2021-02-12] MEDS: HEPARIN 5000 UNITS/ML VIAL SUBCUT SCH ×2 (09:45→21:54)
[2021-02-12] MEDS ORDERED: NALOXONE HCL 0.4MG/ML VIAL IV PRN (14:00)
[2021-02-12 14:49] LABS: TOTAL IRON BINDING CAPACITY 116 ug/dL (250-450)
[2021-02-12] MEDS: HYDROCODONE/ACETAMINOPHEN 5/325MG TABLET PO PRN (21:58)
[2021-02-13] VITALS: BP 104/68
[2021-02-13 04:00] VITALS: BP 93/61
[2021-02-13] MEDS: CEFTRIAXONE 1,000 MG in DEXTROSE 5% WATER 50 ML IV SCH (06:32)
[2021-02-13 08:00] VITALS: BP 106/74
[2021-02-13] MEDS: HEPARIN 5000 UNITS/ML VIAL SUBCUT SCH ×2 (09:46→21:35)
[2021-02-13 12:00] VITALS: BP 98/60
[2021-02-13] MEDS: DEXT 5%/0.45% NACL 1000ML 1,000 ML IV SCH (15:15)
[2021-02-13 15:32] LABS: BASOPHILS % 0.3 % (0.0-2.0); EOSINOPHILS % 0.6 % (0.0-5.0); HEMATOCRIT. 26.7 % (42.0-52.0); HEMOGLOBIN. 8.7 g/dL (14.0-18.0); LYMPHOCYTES % 18.9 % (20.0-50.0); MEAN CORPUSCULAR HEMOGLOBIN 27.9 pg (28.0-32.0); MEAN PLATELET VOLUME 6.4 fl (7.4-10.4); MONOCYTES % 6.6 % (2.0-8.0); NEUTROPHILS % 73.6 % (40.0-76.0); PLATELET 341 x1000/uL (130-400); RED BLOOD CELL COUNT 3.11 mill/uL (4.7-6.1); RED CELL DISTRIBUTION WIDTH 16.1 % (11.6-14.6)
[2021-02-13 15:44] LABS: CHLORIDE 104 mEq/L (98-107)
[2021-02-13 16:00] VITALS: BP 108/62
[2021-02-13 19:05] LABS: FOLIC ACID (FOLATE) SERUM 12.2 ng/mL (>5.38)
[2021-02-13 20:01] VITALS: BP 101/63
[2021-02-13] MEDS: ZOLPIDEM TARTRATE 5MG TABLET PO PRN (21:35)
[2021-02-13] MEDS: HYDROCODONE/ACETAMINOPHEN 5/325MG TABLET PO PRN (21:36)
[2021-02-14] VITALS (7 sets, daily range): BP systolic 89–103; BP diastolic 53–65
[2021-02-14] MEDS: DEXT 5%/0.45% NACL 1000ML 1,000 ML IV SCH ×2 (03:23→21:33)
[2021-02-14] MEDS: CEFTRIAXONE 1,000 MG in DEXTROSE 5% WATER 50 ML IV SCH (03:23)
[2021-02-14 05:46] LABS: BASOPHILS % 0.6 % (0.0-2.0); HEMATOCRIT. 23.2 % (42.0-52.0); HEMOGLOBIN. 7.7 g/dL (14.0-18.0); LYMPHOCYTES % 24.5 % (20.0-50.0); MEAN CORPUSCULAR HEMOGLOBIN 28.2 pg (28.0-32.0); MEAN CORPUSCULAR VOLUME 85.4 fL (80.0-94.0); MEAN PLATELET VOLUME 6.5 fl (7.4-10.4); MONOCYTES % 8.3 % (2.0-8.0); NEUTROPHILS % 65.6 % (40.0-76.0); PLATELET 303 x1000/uL (130-400); RED BLOOD CELL COUNT 2.72 mill/uL (4.7-6.1); RED CELL DISTRIBUTION WIDTH 15.9 % (11.6-14.6)
[2021-02-14 06:01] LABS: CHLORIDE 102 mEq/L (98-107)
[2021-02-14] MEDS: HEPARIN 5000 UNITS/ML VIAL SUBCUT SCH (09:00)
[2021-02-14] MEDS ORDERED: FLUC200T51 PO (11:08)
[2021-02-14] MEDS ORDERED: LEVO500T89 MT (11:08)
[2021-02-14 12:12] LABS: HEMATOCRIT 22.9 % (42.0-52.0); HEMOGLOBIN 7.3 g/dL (14.0-18.0)
[2021-02-14] MEDS ORDERED: ZOLP5TAB2 MT ×3 (13:38→16:32)
[2021-02-14] MEDS ORDERED: FERR-71 MT ×3 (13:40→16:32)
[2021-02-14] MEDS ORDERED: CLONIDINE 0.1MG TABLET PO PRN (17:30)
[2021-02-14] MEDS: ZOLPIDEM TARTRATE 5MG TABLET PO PRN (21:32)
[2021-02-14] MEDS: HYDROCODONE/ACETAMINOPHEN 5/325MG TABLET PO PRN (21:32)
[2021-02-14 21:52] LABS: HEMATOCRIT 28.7 % (42.0-52.0); HEMOGLOBIN 9.4 g/dL (14.0-18.0)
[2021-02-15] VITALS: BP 100/57
[2021-02-15] MEDS: CEFTRIAXONE 1,000 MG in DEXTROSE 5% WATER 50 ML IV SCH (02:51)
[2021-02-15 04:00] VITALS: BP 119/56
[2021-02-15 11:11] VITALS: BP 91/62
== END 2021-02-15 13:40 | disposition home health service (06) | DRG 871 ==
LOC: ER 15:16 → 8WST 19:13 → ENRESERV 20:01
PROVIDERS: ADMIT Internal Medicine; ATTEND Internal Medicine
PROC: 30233N1 Transfusion of Nonautologous Red Blood Cells into Peripheral Vein, Percutaneous Approach (ICD-10-PCS; principal; 2021-02-14)
DX: A41.9 Sepsis, unspecified organism (principal); E43 Unspecified severe protein-calorie malnutrition; J18.9 Pneumonia, unspecified organism; N39.0 Urinary tract infection, site not specified; G40.909 Epilepsy, unspecified, not intractable, without status epilepticus; D64.9 Anemia, unspecified; R19.00 Intra-abdominal and pelvic swelling, mass and lump, unspecified site; N20.0 Calculus of kidney; Z85.841 Personal history of malignant neoplasm of brain; Z93.2 Ileostomy status; Z79.899 Other long term (current) drug therapy; Z85.038 Personal history of other malignant neoplasm of large intestine; Z87.442 Personal history of urinary calculi; Z93.3 Colostomy status; Z93.6 Other artificial openings of urinary tract status; Z68.20 Body mass index [BMI] 20.0-20.9, adult; Z88.0 Allergy status to penicillin; Z82.49 Family history of ischemic heart disease and other diseases of the circulatory system
CPT/HCPCS: 36415; 74176; 80048; 80053; 80305; 80320; 81003; 82550; 82607; 82728; 82746; 83540; 83550; 83605; 83880; 84484; 85014; 85018; 85025; 86850; 86870; 86900; 86920; 87426; 90686; 93005; 97162; 97166; 99285; A6261; J0696; J1580; J1644; J2270; J2405; J7030; J7040; J7060; P9016; G0480